=== PATIENT | female | born 1975 | race Caucasian/White ===

== ENCOUNTER 2021-01-25 05:54 | Emergency (ER) | payer OTHER ==
[2021-01-25 06:50] LABS: HEMOGLOBIN 11.6 gm/dl (12.3-15.3); RED BLOOD COUNT 4.42 M/UL (4.00-5.10); WHITE BLOOD COUNT 6.7 K/UL (4.5-11.0)
[2021-01-25 07:12] LABS: BUN/CREATININE RATIO 15 (0-10)
== END 2021-01-25 12:15 | disposition home or self-care (01) ==
LOC: ER1 05:54
PROVIDERS: Student in an Organized Health Care Education/Training Program
DX: R07.9 Chest pain, unspecified (principal); I25.10 Atherosclerotic heart disease of native coronary artery without angina pectoris; E87.6 Hypokalemia; I10 Essential (primary) hypertension; Z88.2 Allergy status to sulfonamides
CPT/HCPCS: 71045; 80053; 82550; 82553; 83690; 83735; 83874; 84100; 84484; 84702; 85025; 93005; 99285

== ENCOUNTER 2022-03-04 10:46 | Emergency (ER) | payer OTHER ==
[2022-03-04 11:29] LABS: HEMOGLOBIN 13.5 gm/dl (12.3-15.3); RED BLOOD COUNT 4.77 M/UL (4.00-5.10); WHITE BLOOD COUNT 5.7 K/UL (4.5-11.0)
[2022-03-04 11:54] LABS: BUN/CREATININE RATIO 14 (0-10)
== END 2022-03-04 15:25 | disposition home or self-care (01) ==
LOC: ER1 10:46
PROVIDERS: Physician Assistant
DX: R07.9 Chest pain, unspecified (principal); E78.5 Hyperlipidemia, unspecified; I10 Essential (primary) hypertension; Z88.2 Allergy status to sulfonamides; Z79.82 Long term (current) use of aspirin; Z79.899 Other long term (current) drug therapy
CPT/HCPCS: 71045; 80053; 82550; 82553; 84484; 85025; 93005; 99285